=== PATIENT | female | born 1945 | race Caucasian/White ===

== ENCOUNTER 2018-12-13 06:04 | Day surgery (SDC) | payer OTHER ==
[2018-12-13] MEDS ORDERED: PERCOCET 5-3251 EACH PO (08:16)
[2018-12-13] MEDS ORDERED: RECTICARE30 GM TOP (08:17)
== END 2018-12-13 13:40 | disposition home or self-care (01) ==
LOC: CIR.AMB 06:04
DX: K62.0 Anal polyp (principal)